=== PATIENT | male | born 1985 | race Caucasian/White ===

== ENCOUNTER 2023-04-25 02:01 | Emergency (ER) | payer OTHER, SELFPAY ==
[2023-04-25 02:04] VITALS: BP 120/84
--- NOTE | 2023-04-25 02:36 | ED.GENMED ---
History of Present Illness
General
Chief Complaint: Cold/Flu/URI Symptoms
Source: patient
Exam Limitations: none
Time Seen by Provider: 04/25/23 02:28
Travel History
Have you had any contact with someone who has COVID-19?: No
Do you have any symptoms of coronavirus? Fever > 100 degrees, chills, cough, shortness of breath, sore throat, loss of taste or smell, muscle aches, or headache?: Yes
Symptoms:: see triage
History of Present Illness
History of Present Illness:
This is a 38 year old male that comes in with c/o fever. States that he started on not feeling well. States that he has a low grade fever of 100.9 and a sore throat. States that today his fever continued and it kept going up. States that he
started with a cough today and tonight his temp with an ear thermometer went up to 105. States that he has no appetite and has been taking Tylenol and Advil, aleve. States that he took Tylenol last at 12:45 and Advil around 6pm. States that he feels
cloudy and hard to focus. Denies any chills, chest pain, SOB, abd pain, nausea, vomiting, diarrhea, headache, dizziness, urinary burning .
Past History
Past History
ED Past Medical History: None; Negative Asthma, HTN, Hypercholesterolemia or NIDDM
ED Past Surgical History: Other (Hernia)
Social History
Tobacco: Non-smoker
Alcohol: None
Personal:
Living: with family
Review of Systems
Review of Systems
All Other Systems: ROS reviewed and negative except as documented in HPI and ROS
Constitutional: Reports fever; Denies chills
EENT: Reports sore throat
Respiratory: Reports cough; Denies trouble breathing
Cardiac: Denies chest pain
ABD/GI: Reports no symptoms; Denies abdominal pain, nausea, vomiting or diarrhea
: Reports no symptoms; Denies dysuria, frequency or urgency
Musculoskeletal: Reports no symptoms
Skin: Reports no symptoms
Neurological: Reports other (Feels cloudy and hard to focus); Denies dizzy or headache
Psychiatric: Reports no symptoms
Phy Exam
General Physical Exam
General Presentation: no apparent distress
General age: appears stated age
General Skin: warm and dry
General Habitus: normal
General Mental: alert
General Hydration: appears well hydrated
ENT Exam
ENT Exam: TM's normal, pharynx normal and neck supple
Eye Exam
Eye Exam: EOMI
Cardiovascular Exam
Cardiovascular Exam: regular rate/rhythm, no edema, no murmur and normal peripheral pulses
Pulmonary Exam
Pulmonary Exam: lungs clear, no respiratory distress, no rales, chest non tender, no crackles, no rhonchi, no wheezing and no cough
Gastrointestinal Exam
Gastrointestinal Exam: normal bowel sounds, non tender, soft, no organomegaly, no pulsatile mass and non distended
Musculoskeletal Exam
Musculoskeletal Exam: full ROM and no edema
Skin Exam
Skin Exam: normal color, warm/dry, no rash and no petechia
Psychiatric Exam
Psychiatric Exam: normal mood/affect
Course
Orders/Labs/Results
Orders:
Orders
04/25/23 02:13
COVID-19 Antigen Urgent
Source: Nasal Swab
Influenza A+B Rapid Molecular Urgent
ANICETO Source: Nasal Swab
Specimen Description:
04/25/23 02:35
0.9% Sodium Chloride 1000 ml [Nss] 1,000 ml IV BOLUS
Ketorolac [Toradol] 30 mg IV NOW STA
04/25/23 02:37
CR Chest - 2 Views Urgent
Comment:
Reason For Exam: fever, cough
04/25/23 02:45
Complete Blood Count/With Diff Urgent
Comprehensive Metabolic Panel Urgent
Abnormal Lab Results
04/25/23
02:45
RBC 4.43 L 10^6/uL
(4.70-6.10)
Hct 37.6 L %
(39.0-52.0)
Absolute Neuts (auto) 8.1 H 10^3/uL
(1.4-6.5)
Absolute Lymphs (auto) 0.4 L 10^3/uL
(1.2-3.4)
Absolute Monos (auto) 1.0 H 10^3/uL
(0.1-0.6)
Neutrophils % 83.8 H %
(42.2-75.2)
Lymphocytes % 3.8 L %
(20.5-51.1)
Monocytes % 10.5 H %
(1.7-9.3)
Sodium 134 L mmol/L
(135-145)
Carbon Dioxide 18 L mmol/L
(22-30)
Glucose 166 H mg/dl
(70-99)
04/25/23 02:45
04/25/23 02:45
COVID Negative. Influenza A positive, carbon dioxide slightly low, Glucose nonfasting,
Vital Signs
Initial and Last Documented VS:
Initial Vital Signs
Temp Pulse Resp BP Pulse Ox
101.4 F H 130 20 120/84 95
04/25/23 02:04 04/25/23 02:04 04/25/23 02:04 04/25/23 02:04 04/25/23 02:04
Last Documented Vital Signs
Temp Pulse Resp BP Pulse Ox
101.4 F H 130 20 134/71 99
04/25/23 02:04 04/25/23 02:04 04/25/23 02:04 04/25/23 02:47 04/25/23 02:54
MDM/Problems Addressed
Differential Diagnosis Includes:
COVID, Influenza, PNA
MDM/Problems Addressed:
This is a 38 year old male that comes in with c/o fever. States that he started on not feeing well. States that he had a low grade fver and sore throat. Today the fever continued and it went up to 105. States that he has been taking
Tylenol, Advil and Aleve. States that he feels cloudy or had to focus.
Will check labs, COVID, Influenza, Give IV fluids and Toradol
Back into see patient. Explained that he has Influenza A. This is a viral illness. Encouraged patient to increase his water intake to 8-8oz glasses daily. Tylenol or Ibuprofen for fever and body aches. Follow up with the family doctor as needed.
Return with any concerns.
Chronic conditions affecting care:
NA
Acute Exacerbation and/or Progression of Chronic Illness:
NA
*Radiology
Radiology exam reviewed: preliminary read by ED provider (Chest- Negative for active disease)
*Pulse Oximetry
Patient hypoxic: no
*EKG
Interpreted by ED Provider?: NA
Rate: EKG- N/A
*Electric Crane Operator Interpretation
Rate: Electric Crane Operator- N/A
*Critical Care Note
Total Time (30-74mins, 75-104mins- exclusive of procedures): Not Applicable
ED Attending Note
-
Portions of this chart may have been created with voice recognition software.� Occasional wrong word or��sound alike� substitutions may have occurred due to the inherent limitations of voice recognition software.
Discharge Plan
Departure
Patient Disposition: Home (Routine Discharge)
Date of Disposition: 04/25/23
Time of Disposition: 03:27
Patient with high blood pressure during this ER visit?: No
Condition: Good
Covid-19: Not Applicable
Discharge Problem:
Influenza A
Instructions: Flu, Adult (DC)
Activity Restrictions/Additional Instructions:
As discussed, you are positive for influenza A. Please increase your water intake to 8-8oz glasses daily. You may take Tylenol 1000mg every 6 hours for fever and Ibuprofen 400mg ever 6 hours with food. Follow up with the family doctor for recheck as
needed. IF YOU HAVE ANY OTHER CONCERNS PLEASE RETURN TO THE EMERGENCY ROOM .
Interventions
Interventions:
*Risk Screen - Suicide Last Done: 04/25/23 02:04
*General Assessment Last Done: 04/25/23 02:04
*Neglect/Abuse Screening Last Done: 04/25/23 02:04
ED- Fall Risk Assessment Last Done: 04/25/23 02:04
*ED COVID-19 Vaccine History Last Done: 04/25/23 02:04
ED- Pulmonary Assessment Last Done: 04/25/23 02:54
[2023-04-25 02:41] LABS: COVID-19 Antigen Negative (Negative)
[2023-04-25 02:47] VITALS: BP 134/71
[2023-04-25] MEDS: NSS 1000 IV (02:50)
[2023-04-25] MEDS: TORADOL 30 MG IV (02:51)
[2023-04-25 02:54] LABS: % Basophils 0.4 % (0-2); % Eosinophils 1.1 % (0-6); % Immature Granulocytes 0.4 % (0-0.5); % Lymphocytes 3.8 % (20.5-51.1); % Monocytes 10.5 % (1.7-9.3); % Neutrophils 83.8 % (42.2-75.2); Absolute Eosinophils 0.1 10^3/uL (0-0.7); Absolute Lymphocytes 0.4 10^3/uL (1.2-3.4); Absolute Neutrophils 8.1 10^3/uL (1.4-6.5); Hematocrit 37.6 % (39.0-52.0); Hemoglobin 13.6 g/dL (13.0-18.0); Mean Corp Hgb Conc. 36.2 g/dL (33.0-37.0); Mean Corpuscular Hgb 30.7 pg (27.0-31.0); Mean Corpuscular Volume 84.9 fL (80.0-94.0); Mean Platelet Volume 10.3 fL (7.4-10.4); Nucleated Red Blood Cells % 0 % (-); Platelet Count 209 10^3/uL (130-400); Red Blood Cell Count 4.43 10^6/uL (4.70-6.10); Red Cell Dist. Width 11.8 % (11.5-14.5); White Blood Cell Count 9.6 10^3/uL (4.8-10.8)
[2023-04-25 03:00] VITALS: BP 131/74
[2023-04-25 03:14] LABS: ALT (SGPT) 39 U/L (0-50); AST (SGOT) 34 U/L (17-59); Albumin 4.4 g/dl (3.5-5.0); Alkaline Phosphatase 79 U/L (38-126); Blood Urea Nitrogen 11 mg/dl (9-20); Calcium 8.9 mg/dl (8.4-10.2); Carbon Dioxide 18 mmol/L (22-30); Chloride 105 mmol/L (98-107); Glucose 166 mg/dl (70-99); Sodium 134 mmol/L (135-145); Total Bilirubin 0.8 mg/dl (0.2-1.3); eGFR > 60.00
[2023-04-25 04:25] VITALS: BP 132/73
== END 2023-04-25 04:30 | disposition home or self-care (01) ==
LOC: EMR 02:01
PROVIDERS: Clinical Nurse Specialist Family Health; EMERGENCY PHYSICIAN Emergency Medicine; FAMILY PHYSICIAN Family Medicine
DX: J10.1 Influenza due to other identified influenza virus with other respiratory manifestations (principal); Z11.52 Encounter for screening for COVID-19
CPT/HCPCS: 99284; 96374; 96361; 71046; 80053; 85025; 87502; 87811